=== PATIENT | male | born 1975 | race Caucasian/White ===

== ENCOUNTER 2019-03-21 08:22 | Day surgery (SDC) | payer BC ==
[~2019-03-21 08:22] MED LIST: Buffered Lidocaine 1% SYRIN* 1 ML/SYRINGE INTRADERM ONE; Clindamycin 900 MG IVPREMIX(* 900 MG/50 ML SDV IV ONE; Lactated Ringers 1000 ML Bag* 1,000 ML IV SCH
[2019-03-21] MEDS ORDERED: Rocuronium* 10 MG/ML VIAL ONE ×2 (09:15→10:49)
[2019-03-21] MEDS ORDERED: Lidocaine 2% PF * 5 ML VIAL ONE (09:15)
[2019-03-21] MEDS ORDERED: Propofol* 10 MG/ML 20 ML BTL ONE (09:15)
[2019-03-21] MEDS ORDERED: fentaNYL* 50 MCG/ML 2 ML VIAL (100 MCG VIAL) ONE ×2 (09:16→09:18)
[2019-03-21] MEDS ORDERED: Midazolam* 1 MG/ML 2 ML VIAL (2 MG) ONE (09:16)
[2019-03-21] MEDS ORDERED: Labetalol IV* 5 MG/ML 20 ML VIAL ONE (10:05)
[2019-03-21] MEDS ORDERED: Bupivacaine 0.5% W/EPI SDV* 30 ML VIAL ONE (10:49)
[2019-03-21] MEDS ORDERED: Dexamethasone IV* 4 MG/ML 1 ML (4 MG) ONE (11:17)
[2019-03-21] MEDS ORDERED: Metoclopramide IV* 5 MG/ML 2 ML VIAL ONE (11:17)
[2019-03-21] MEDS ORDERED: Ondansetron INJ* 2 MG/ML VIAL ONE (11:17)
[2019-03-21] MEDS ORDERED: Ketorolac INJ* 30 MG/ML 1 ML VIAL ONE (11:17)
[2019-03-21] MEDS ORDERED: EPHEDrine (Pressors)* 50 MG/ML VIAL ONE (11:18)
[2019-03-21] MEDS ORDERED: oxyCODONE TAB* 5 MG TAB PO PRN (11:21)
[2019-03-21] MEDS ORDERED: Naloxone* 0.4 MG/ML 1 ML VIAL IV PRN (11:21)
[2019-03-21] MEDS ORDERED: Acetaminophen TAB* 325 MG PO PRN (11:21)
[2019-03-21] MEDS ORDERED: HYDROmorphone INJ1* 1 MG/ML SYRINGE IV PRN (11:21)
[2019-03-21] MEDS ORDERED: DiMENhydriNATE IV* 50 MG/ML VIAL IV PUSH PRN (11:21)
[2019-03-21] MEDS ORDERED: Neostigmine Methylsulfate* 1 MG/ML 10 ML VIAL (1 mg/ml) ONE (12:10)
[2019-03-21] MEDS ORDERED: Glycopyrrolate IV* 0.2 MG/ML 1 ML VIAL ONE (12:10)
[2019-03-21] MEDS ORDERED: hydrALAZINE IV* 20 MG/ML VIAL ONE (12:40)
[2019-03-21 13:39] VITALS: BP 157/96
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
== END 2019-03-21 14:00 | disposition home or self-care (01) ==
LOC: OR 08:22
PROVIDERS: ATTEND Orthopaedic Surgery
DX: S42.022A Displaced fracture of shaft of left clavicle, initial encounter for closed fracture (principal); V86.56XA Driver of dirt bike or motor/cross bike injured in nontraffic accident, initial encounter; Y92.9 Unspecified place or not applicable; R03.0 Elevated blood-pressure reading, without diagnosis of hypertension
CPT/HCPCS: 71045; 76000; C1713; C1776; J0360; J1100; J1885; J2250; J2405; J2704; J2710; J2765; J3010